=== PATIENT | female | born 1955 | race Caucasian/White ===

== ENCOUNTER 2021-04-13 18:38 | Emergency (ER) | payer MEDICARE ==
[2021-04-13 18:45] VITALS: TEMP 98
[2021-04-13] MEDS ORDERED: HYDROmorphone 1 MG/ML 1 ML SYRINGE IM STA (19:15)
[2021-04-13] MEDS ORDERED: LIDOCAINE 5% PATCH TOPICAL STA (19:15)
--- NOTE | 2021-04-13 19:37 | ED ---
Back Pain HPI - General Chief Complaint: Back Pain/Injury Stated Complaint: Back pain Time Seen by Provider: 04/13/21 18:57 Source: patient Limitations: no limitations - History of Present Illness Initial Comments: 66 year-old female patient with past history significant for MS with frequent falls. States she has had two falls over the last two days. States that she was outside and fell into the wall. States she did hit her face which caused some bruising around her right eye. Denies any headache, loss of consciousness, visual disturbance, nausea, or vomiting. States her other fall was last night when she fell into a chair. States she has increased low back pain. States it is low in the middle of her back over her spine. States this is worse and different than her usual back pain. States she is having some radiation down the left lateral leg to just above the knee. Denies new numbness or tingling to the legs. Denies saddle anesthesia or loss of bowel or bladder control. Denies any fever or chills. Has had multiple back surgeries and injections. Patient denies any recent rash, cough, shortness of breath, chest pain, abdominal pain, nausea, vomiting, diarrhea, constipation, dizziness, weakness, hematuria, dysuria, urinary urgency, urinary frequency, headache, visual changes, or any other complaints. - Related Data Previous Rx's Medication Instructions Recorded methylPREDNISolone [Medrol Dose 4 mg PO DIRECTED #1 pack 04/13/21 Pack] oxyCODONE HCL/ACETAMINOPHEN 1 tab PO Q8H PRN #9 tab 04/13/21 [Percocet 7.5-325 mg] Allergies Allergy/AdvReac Type Severity Reaction Status Date / Time tetanus toxoid, adsorbed Allergy Unknown Verified 04/13/21 18:40 Review of Systems ROS Statement: Those systems with pertinent positive or pertinent negative responses have been documented in the HPI. ROS Other: All systems not noted in ROS Statement are negative. Past Medical History Past Medical History: COPD, Renal Disease, Thyroid Disorder Additional Past Medical History / Comment(s): back pain, ms History of Any Multi-Drug Resistant Organisms: None Reported Past Surgical History: Back Surgery, Hysterectomy Additional Past Surgical History / Comment(s): thyroidectomy Past Psychological History: No Psychological Hx Reported Smoking Status: Current every day smoker Past Alcohol Use History: None Reported Past Drug Use History: None Reported General Exam Limitations: no limitations General appearance: alert, in no apparent distress, other (This is a well- developed, well-nourished adult female patient in no acute distress. Vital signs upon presentation temperature 98.0F, pulse 80, respirations 16, blood pressure 145/77, pulse ox 95% on room air.) Respiratory exam: Present: normal lung sounds bilaterally. Absent: respiratory distress, wheezes, rales, rhonchi, stridor Cardiovascular Exam: Present: regular rate, normal rhythm, normal heart sounds. Absent: systolic murmur, diastolic murmur, rubs, gallop, clicks GI/Abdominal exam: Present: soft, normal bowel sounds. Absent: distended, tenderness, guarding, rebound, rigid Extremities exam: Present: normal inspection, full ROM, normal capillary refill, other (Skin to the lower extremities are pink, warm, dry. Cap refill less than 3 seconds. Pedal pulses 2+.). Absent: tenderness, pedal edema, joint swelling, calf tenderness Back exam: Present: normal inspection, vertebral tenderness (Lower lumbar) Neurological exam: Present: alert, oriented X3, CN II-XII intact Psychiatric exam: Present: normal affect, normal mood Skin exam: Present: warm, dry, intact, normal color. Absent: rash Course Vital Signs 04/13/21 04/13/21 18:40 21:28 Temperature 98.0 F Pulse Rate 80 72 Respiratory 16 18 Rate Blood Pressure 145/77 141/86 O2 Sat by Pulse 95 98 Oximetry Medical Decision Making - Medical Decision Making 66 year-old female patient with past history significant for chronic back pain and MS presented to the emergency department today for evaluation of increased low back pain after 2 falls. Physical examination did reveal tenderness over the lumbar spine. She had no concerning symptoms or cauda equina. No fever. X-ray was obtained and showed no evidence for vertebral collapse or acute fracture. She'll be discharged with a increase in pain medication for the next 3 days. Instructed to follow-up with her facilities painter and direct marketing specialist as soon as possible. Return parameters were discussed in detail. She verbalizes understanding and agrees with this plan. Case discussed with my attending Dr. Sepulveda. - Radiology Data Radiology results: report reviewed, image reviewed X-ray of the lumbosacral spine are obtained. Report was reviewed in its entirety. Impression by Dr. Torrez shows intraspinous fusion hardware L3 to 4 and L4 to 5. Grade 1 anterolisthesis at fused L3 to L4 level. Changes L3 to S1 levels. No vertebral compression collapse. Disposition Clinical Impression: Acute exacerbation of chronic low back pain Disposition: HOME SELF-CARE Condition: Good Instructions (If sedation given, give patient instructions): Acute Low Back Pain (ED) Additional Instructions: Take medications as directed. Follow up through primary care physician and back specialist for further evaluation as soon as possible. Return to the emergency department for any new, worsening, or concerning symptoms. Prescriptions: methylPREDNISolone [Medrol Dose Pack] 4 mg PO DIRECTED #1 pack oxyCODONE HCL/ACETAMINOPHEN [Percocet 7.5-325 mg] 1 tab PO Q8H PRN #9 tab PRN Reason: Pain Is patient prescribed a controlled substance at d/c from ED?: No Referrals: Nonstaff,Physician [REFERRING] - 1-2 days Time of Disposition: 21:18
--- NOTE | 2021-04-13 20:55 | XR ---
EXAMINATION TYPE: XR lumbosacral spine min 4V DATE OF EXAM: 04/13/2021 Comparison: None Clinical History: 66-year-old female Fall, mid low back pain Findings: Interspinous fusion hardware at L3-L4 and L4-L5. Severe hypertrophic facet arthropathy. Advanced disc /endplate degenerative change from L3 through S1 levels. Fixed grade 1 anterolisthesis L3-L4. Vertebr al body heights are preserved. Bridging anterior plate spondylosis lower thoracic spine. Impression: 1. Intraspinous fusion hardware at L3-L4 and L4-L5. Fixed grade 1 anterolisthesis at the fused L3-L4 level. 2. Severe disc/endplate degenerative change L3-S1 levels. 3. No vertebral compression collapse.
[2021-04-13] MEDS ORDERED: oxyCODONE-APAP 7.5-325MG 1 EACH TAB PO STA (20:58)
[2021-04-13 21:30] VITALS: BP 141/86; PULSE 72; RESP 18
== END 2021-04-13 21:29 | disposition home or self-care (01) ==
LOC: EC 18:38
DX: M54.5 Low back pain (principal); G89.29 Other chronic pain; F17.200 Nicotine dependence, unspecified, uncomplicated; Z98.1 Arthrodesis status
CPT/HCPCS: 72110; 99283; 96372; J1170

== ENCOUNTER → 2023-12-09 | Outpatient (CLI) | payer MEDICARE, OTHER ==
--- NOTE | 2023-12-09 16:30 | CTL ---
EXAMINATION TYPE: CT Low Dose Lung DATE OF EXAM ORDERED: 12/09/2023 HISTORY: Current smoker. Lung cancer screening CT DLP: 138.[address] CTDI: 3.8 mGy Automated exposure control for dose reduction was used. SCREENING VISIT: Initial COMPARISON: None TECHNIQUE: Low dose computed tomography scan was performed through the chest at 1 mm thick sections a nd reconstructed images in the coronal plane at [address] DIAGNOSTIC QUALITY: Satisfactory FINDINGS: LUNG NODULES: None. LUNGS: COPD: Severity: None Fibrosis: Severity: None Lymph nodes: None Other findings: None RIGHT PLEURAL SPACE: Effusion: None Calcification: None Thickening: None Pneumothorax: None LEFT PLEURAL SPACE: Effusion: None Calcification: None Thickening: None Pneumothorax: None HEART: Heart Size: Normal Coronary calcification: Mild Pericardial effusion: None OTHER FINDINGS: Upper abdomen: Normal Bony thorax: Normal Supraclavicular region: Normal Other: Ascending thoracic aorta at the level the main pulmonary artery measures 3.2 cm. The main pul monary artery at the bifurcation measures 2.7 cm. IMPRESSION: No suspicious changes for primary or metastatic neoplasm. FOLLOW UP CT CHEST RECOMMENDATION: Follow-up low-dose CT chest one year CT LUNG RAD: Lung-Rad 1 Negative
== END | disposition home or self-care (01) ==
LOC: RADCTMAIN 11:13
PROVIDERS: ATTEND Internal Medicine Critical Care Medicine
DX: Z12.2 Encounter for screening for malignant neoplasm of respiratory organs (principal); F17.210 Nicotine dependence, cigarettes, uncomplicated
CPT/HCPCS: 71271

== ENCOUNTER → 2024-02-03 | Outpatient (CLI) | payer MEDICARE, OTHER ==
--- NOTE | 2024-02-04 10:29 | CA ---
Transthoracic Echo Report Name: Sejal Smith Age: 68 Gender: F : 1955 Exam Date: 02/03/2024 14:37 Exam Location: [place] [facility] Ht (in): 65 Wt (lb): 235 Ordering Physician: David Aponte MD Attending/Referring Phys: Christa Johnson [facility] Supervisor [employer] Assembly Amy Oliveros RDCS Procedure CPT: Indications: R01.1 CARDIAC MURMUR, UNSPECIFIED Cardiac Hx: Technical Quality: Fair Contrast 1: Total Dose (mL): Contrast 2: Total Dose (mL): MEASUREMENTS (Male / Female) Normal Values 2D ECHO LV Diastolic Diameter PLAX 4.9 cm 4.2 - 5.9 / 3.9 - 5.3 cm LV Systolic Diameter PLAX 3.6 cm IVS Diastolic Thickness 1.4 cm 0.6 - 1.0 / 0.6 - 0.9 cm LVPW Diastolic Thickness 1.3 cm 0.6 - 1.0 / 0.6 - 0.9 cm LV Relative Wall Thickness 0.5 RV Internal Dim ED PLAX 2.0 cm LA Systolic Diameter LX 2.9 cm 3.0 - 4.0 / 2.7 - 3.8 cm LV Diastolic Volume MOD BP 76.1 cm??? 67 - 155 / 56 - 104 cm??? LV Systolic Volume MOD BP 27.4 cm??? 22 - 58 / 19 - 49 cm??? LV Ejection Fraction MOD BP 64.0 % >= 55 % LV Cardiac Index MOD BP 1786.1 cm???/min???m??? LV Diastolic Volume MOD 4C 71.3 cm??? LV Systolic Volume MOD 4C 26.9 cm??? LV Ejection Fraction MOD 4C 62.3 % LV Cardiac Index MOD 4C 1630.8 cm???/min???m??? LV Diastolic Length 4C 7.7 cm LV Systolic Length 4C 6.3 cm LV Diastolic Volume MOD 2C 74.2 cm??? LV Systolic Volume MOD 2C 27.5 cm??? LV Ejection Fraction MOD 2C 62.9 % LV Cardiac Index MOD 2C 1711.5 cm???/min???m??? LV Diastolic Length 2C 6.9 cm LV Systolic Length 2C 6.2 cm M-MODE Aortic Root Diameter MM 3.1 cm LA Systolic Diameter MM 3.4 cm LA Ao Ratio MM 1.1 DOPPLER AV Peak Velocity 158.7 cm/s AV Peak Gradient 10.1 mmHg AV Mean Velocity 117.0 cm/s AV Mean Gradient 6.3 mmHg AV Velocity Time Integral 34.6 cm MV E' Velocity 6.9 cm/s FINDINGS Left Ventricle Left ventricular ejection fraction is estimated at 60-65 %. Moderately increased septal wall thickness. Mildly increased posterior wall thickness. No obvious regional wall motion abnormalities. Left ventricular cavity size normal. Right Ventricle Normal right ventricular size and function. Right ventricular systolic pressure within normal limits. Right Atrium Normal right atrial size. Left Atrium Normal left atrial size. Mitral Valve Structurally normal mitral valve. Trace mitral regurgitation. No mitral stenosis. Aortic Valve Trileaflet aortic valve. No aortic valve stenosis or regurgitation. Thickened aortic valve without stenosis. Tricuspid Valve Structurally normal tricuspid valve. Trace tricuspid regurgitation. Pulmonic Valve No pulmonic stenosis. No pulmonic regurgitation. Pericardium No pericardial or pleural effusion. Aorta Normal size aortic root and proximal ascending aorta. CONCLUSIONS LVH with preserved systolic function Previewed by: Dr. Booker Loo MD (Electronically Signed) Final Date: 04 February 2024 10:29
== END | disposition home or self-care (01) ==
LOC: RADECHMAIN 15:24
PROVIDERS: ATTEND Family Medicine
DX: R01.1 Cardiac murmur, unspecified (principal)
CPT/HCPCS: 93306

== ENCOUNTER 2024-10-07 11:14 | Day surgery (SDC) | payer MEDICARE, OTHER ==
[2024-10-01 14:58] VITALS: BMI 33.4
[~2024-10-07 11:14] MED LIST: ALPRAZolam 0.25 MG TAB PO PRN; ALPRAZolam 0.5 MG TAB PO PRN; ASPIRIN 325 MG TAB PO STA; HEPARIN SODIUM,PORCINE (1 ML) 2,500 UNIT in SODIUM CHLORIDE 0.9% 250 ML IRRIGATION PRN; HEPARIN SODIUM,PORCINE 10,000 UNIT in SODIUM CHLORIDE 0.9% 1,000 ML IRRIGATION PRN; NITROGLYCERIN SL TABS 0.4 MG TAB SUBLINGUAL PRN
[2024-10-07] MEDS: IV FLUID CONTINUATION 1,000 ML IV ONE (11:46)
[2024-10-07 11:47] VITALS: RESP 18; TEMP 98.2
[2024-10-07] MEDS: SODIUM CHLORIDE 0.9% 1,000 ML in EMPTY BAG 1 BAG IV SCH (11:47)
[2024-10-07] MEDS: HEPARIN SODIUM,PORCINE (1 ML) 2,500 UNIT in SODIUM CHLORIDE 0.9% 250 ML IRRIGATION ONE (11:52)
[2024-10-07] MEDS: HEPARIN SODIUM,PORCINE 10,000 UNIT in SODIUM CHLORIDE 0.9% 1,000 ML IRRIGATION ONE (11:52)
[2024-10-07] MEDS: fentaNYL (PF) 50 MCG/ML 2 ML AMP IVP ONE (12:52)
[2024-10-07] MEDS: MIDAZOLAM 2 MG/2 ML VIAL IVP ONE (12:52)
[2024-10-07] MEDS: LIDOCAINE 1% INJ 10MG/ML (20 ML MDV) SQ ONE (12:58)
[2024-10-07] MEDS: VERAPAMIL SYRINGE (5 MG/10 ML) INTRAARTER ONE (12:59)
[2024-10-07] MEDS: HEPARIN SODIUM 1,000 UN/ML (10ML VL) IVP ONE (13:02)
[2024-10-07] MEDS: IOPAMIDOL-370 100ML BTL INJ ONE (13:15)
--- NOTE | 2024-10-07 13:41 | P.CARDCATH ---
Description of Procedure: PROCEDURES PERFORMED: Left heart catheterization, bilateral coronary angiography, ultrasound guided arterial access, bilateral carotid angiogram, ascending aortic angiogram INDICATION: abnormal stress test, abnormal carotid ultrasound consistent with 100% left internal carotid artery stenosis CONSENT:I have discussed the risks, benefits and alternative therapies for the above-mentioned procedure and for both sedation/analgesia as well as necessary blood product administration, if indicated, as they pertain to this patient. The patient has indicated understanding and acceptance of the risks and procedures discussed. PROCEDURE: After the risks, benefits and alternatives of the above mentioned procedure explained in detail with the patient, informed consent was obtained. Patient was taken to the catheterization lab and prepped and draped in usual fashion. Ultrasound guidance was used to assess for arterial access. 1% l idocaine was used to anesthetize the right radial artery. A 6-Puerto Rican sheath was placed in the right radial artery using modified Seldinger technique and ultrasound guidance. Left coronary angiography was performed with a 5-[place] JL 3.5 catheter and right coronary angiography was performed with a 5-[place] FR5 catheter in various views. A 5-[place] FR5 catheter was inserted into the left ventricle and pressure measurements were obtained. next a 6-[place]ican pigtail was placed in the ascending aorta and aortogram was performed with PSA. This showed 100% occlusion of the left internal carotid artery. Additionally subselective images were obtained with the 5-[place] FR5 catheter and a number abuse with only mild 30% right internal carotid artery stenosis. The right radial sheath was removed and a TR band was placed with hemostasis achieved. The patient tolerated the procedure well. Patient was transported back to the post catheterization holding area in stable condition. Conscious Sedation: Patient was monitored under the direct supervision of myself for conscious sedation using Versed and fentanyl for a total duration of 19 minutes HEMODYNAMICS: aorta: 148/72 LV: 141/18, LVEDP 25 SELECTIVE CORONARY ARTERIOGRAPHY: LEFT MAIN: The left main is a large caliber vessel which bifurcates into the LAD and circumflex. There is no significant stenosis. LEFT ANTERIOR DESCENDING CORONARY ARTERY: LAD is a large caliber vessel which wraps around to the apex. There is are mild luminal irregularities and mid LAD 20% stenosis. There are [id number] collaterals. LEFT CIRCUMFLEX CORONARY ARTERY: Left circumflex is a moderate caliber vessel with mild luminal irregularities in 20-30% circumflex stenosis. RIGHT CORONARY ARTERY: The right coronary artery is a large caliber vessel which gives off a PDA and PLV branch and is the dominant vessel. There is 100% stenosis after a small caliber acute marginal branch. ASCENDING AORTOGRAM: No significant aneurysm or stenosis RIGHT CAROTID: There is some toruosity of the ALHAJI and 30% proximal ALHAJI stenosis LEFT CAROTID: There is 100% LICA stenosis FINAL IMPRESSION: 1. CAD as described above including 100% RCA stenosis with [id number] collaterals, 20-30% circumflex stenosis 2. Elevated left sided filling pressures 3. 100% left internal carotid artery stenosis and 30% right internal carotid artery stenosis PLAN: 1. Aggressive risk factor modification per most recent ACC/AHA guidelines. 2. Medical therapy for INDUSTRIAL CAFETERIA MANAGER RCA and 100% left internal carotid artery stenosis
--- NOTE | 2024-10-07 14:20 | IR ---
EXAMINATION TYPE: IR angio carotid cerv BILAT DATE OF EXAM: 10/07/2024 FLUOROSCOPY left carotid stenosis, 3.3min fluoro, 19.1Gycm2 Total images 359 [facility], , 10/07/2024 2:18 PM
[2024-10-07 15:59] VITALS: PULSE 64
[2024-10-07 16:30] VITALS: BP 100/57
== END 2024-10-07 16:29 | disposition home or self-care (01) ==
LOC: CATHCVL 11:14
PROVIDERS: ATTEND Internal Medicine
DX: I25.10 Atherosclerotic heart disease of native coronary artery without angina pectoris (principal); I65.22 Occlusion and stenosis of left carotid artery; E66.9 Obesity, unspecified; E78.5 Hyperlipidemia, unspecified; I11.0 Hypertensive heart disease with heart failure; I50.32 Chronic diastolic (congestive) heart failure; F17.210 Nicotine dependence, cigarettes, uncomplicated; Z82.49 Family history of ischemic heart disease and other diseases of the circulatory system; Z79.899 Other long term (current) drug therapy
CPT/HCPCS: 93458; 36222; 99152; C1769; C1894; J2250; J1644 ×3; J2003; J3010; Q9967

== ENCOUNTER → 2025-01-10 | Day surgery (SDC) | payer MEDICARE, OTHER ==
[~2025-01-10] MED LIST changes: -ALPRAZolam 0.5 MG TAB PO PRN; -ASPIRIN 325 MG TAB PO STA; -HEPARIN SODIUM,PORCINE (1 ML) 2,500 UNIT in SODIUM CHLORIDE 0.9% 250 ML IRRIGATION PRN; -HEPARIN SODIUM,PORCINE 10,000 UNIT in SODIUM CHLORIDE 0.9% 1,000 ML IRRIGATION PRN; -NITROGLYCERIN SL TABS 0.4 MG TAB SUBLINGUAL PRN
[2025-01-10] MEDS: EMPTY BAG 1 BAG with SODIUM CHLORIDE 0.9% 1,000 ML IV SCH (08:17)
[2025-01-10] MEDS: IV FLUID CONTINUATION 1,000 ML IV ONE (08:25)
[2025-01-10 08:56] VITALS: TEMP 99.6
[2025-01-10] MEDS: HEPARIN SODIUM,PORCINE 10,000 UNIT in SODIUM CHLORIDE 0.9% 1,000 ML IRRIGATION ONE (09:07)
[2025-01-10] MEDS: MIDAZOLAM 2 MG/2 ML VIAL IVP ONE (09:22)
[2025-01-10] MEDS: fentaNYL (PF) 50 MCG/ML 2 ML AMP IVP ONE (09:24)
[2025-01-10] MEDS: LIDOCAINE 1% INJ 10MG/ML (20 ML MDV) SQ ONE (09:25)
[2025-01-10] MEDS: IOPAMIDOL-370 100ML BTL INJ ONE (09:45)
--- NOTE | 2025-01-10 10:00 | P.PCN ---
Description of Procedure: PROCEDURES PERFORMED: Abdominal angiography with bilateral runoff, ultrasound guided arterial access INDICATION: PAD CONSENT:I have discussed the risks, benefits and alternative therapies for the above-mentioned procedure and for both sedation/analgesia as well as necessary blood product administration, if indicated, as they pertain to this patient. The patient has indicated understanding and acceptance of the risks and procedures discussed. PROCEDURE: After the risks, benefits and alternatives of the above mentioned procedure explained in detail with the patient, informed consent was obtained. Patient was taken to the catheterization lab and prepped and draped in usual fashion. 1% lidocaine was used to anesthetize the right femoral area. A 6- Burkinan sheath was placed in the right femoral artery using modified Seldinger technique. A 5-Burkinan pigtail catheter was inserted to the abdominal aorta and DSA imaging was obtained. Patient tolerated the diagnostic portion well. The left SFA had stenosis at the origin and therefore no intervention was performed. A right femoral angiogram was performed and anatomoy was suitable for closure. A 6Fr Angioseal was placed with hemostasis achieved. The patient tolerated the procedure well. Patient was transported back to the post catheterization holding area in stable condition. Conscious Sedation: Patient was monitored under the direct supervision of vision of myself for conscious sedation using Versed and fentanyl for a total duration of 24 minutes Abdominal aorta: The abdominal aorta has mild calcifcation. Renal arteries are patent. There is no significant dissection or aneurysm. There is no significant stenosis. Right lower extremity: Right common iliac artery: There is mild 30 to 40% stenosis. Right external iliac artery: There is no significant stenosis. Right internal iliac artery: There is no significant stenosis. Right common femoral artery: There is no significant stenosis. Right profunda: There is no significant stenosis. Right SFA: There is right distal SFA 95% stenosis and otherwise mild diffuse disease stenosis. Right popliteal artery: There is no significant stenosis. Right tibioperoneal trunk: There is no significant stenosis. Right anterior tibial artery: There is 100% stenosis. Right posterior tibial artery: There is no significant stenosis. Right peroneal artery: There is no significant stenosis. Left lower extremity: Left common iliac artery: There is no significant stenosis. Left external iliac artery: There is 50% stenosis. Left internal iliac artery: There is no significant stenosis. Left common femoral artery: There is no significant stenosis. Left profunda: There is no significant stenosis. Left SFA: There is 100% ostial stenosis. There is reconstitution at the P1 segment. Left popliteal artery: There is no significant stenosis. Left tibioperoneal trunk: There is no significant stenosis. Left anterior tibial artery: There is no significant stenosis. Left posterior tibial artery: There is 100% stenosis. Left peroneal artery: There is no significant stenosis. FINAL IMPRESSION: 1. Peripheral arterial disease as described above. PLAN: 1. Aggressive risk factor modification per most recent ACC/AHA guidelines. 2. Left SFA not ideal for percutaneous intervention with ostial stenosis. May consider right SFA percutaneous intervention however left SFA would likely need bypass. Tobacco cessation.
--- NOTE | 2025-01-10 10:20 | IR ---
EXAMINATION TYPE: IR angio abdominal w runoff DATE OF EXAM: 01/10/2025 10:12 AM COMPARISON: Pre Operative Images if available both CT/MRI or plain film CLINICAL INDICATION: Female, 69 years old with history of left leg pain, min fluoro, Gycm2; TECHNIQUE: IR angio abdominal w runoff, multiple fluoroscopic images provided for procedure. DAP: Not reported mGym2 Gycm2 uGym2 cGycm2 or equivalent. FINDINGS: IMPRESSION: 1. Report was generated for administrative purposes only. 2. Please see the operative/procedural note for further details. [facility], , 01/10/2025 10:18 AM
[2025-01-10] MEDS: GABAPENTIN 400 MG CAP PO STA (13:47)
[2025-01-10] MEDS: HYDROcodone/APAP 10-325MG 1 EACH TAB PO ONE (13:52)
[2025-01-10 18:49] VITALS: RESP 16
[2025-01-10 18:51] VITALS: BP 138/63; PULSE 62
== END ==
LOC: CATHCVL 07:51
PROVIDERS: ATTEND Internal Medicine
DX: I25.10 Atherosclerotic heart disease of native coronary artery without angina pectoris (principal); I65.23 Occlusion and stenosis of bilateral carotid arteries; I73.9 Peripheral vascular disease, unspecified; I50.33 Acute on chronic diastolic (congestive) heart failure; I11.0 Hypertensive heart disease with heart failure; E78.5 Hyperlipidemia, unspecified; F17.210 Nicotine dependence, cigarettes, uncomplicated; G35 Multiple sclerosis; Z88.7 Allergy status to serum and vaccine; Z79.02 Long term (current) use of antithrombotics/antiplatelets; Z79.890 Hormone replacement therapy; Z79.899 Other long term (current) drug therapy
CPT/HCPCS: 36200; 75625; 75716; 99152; 99153; C1760; C1894; C1769 ×2; J2250; J1644; J2003; J3010; Q9967

== ENCOUNTER → 2025-02-16 | Outpatient (CLI) | payer MEDICARE ==
--- NOTE | 2025-02-16 13:24 | CTL ---
EXAMINATION TYPE: CT Low Dose Lung DATE OF EXAM ORDERED: 02/16/2025 COMPARISON: CT Low Dose Lung 12/09/2023 CLINICAL INDICATION: Female, 69 years old with history of Z12.2 ENCNTR SCREEN FOR MALIGNANT NEOPLASM OF RESZ12.2 ENCNT; PHH, SMOKER, Lung cancer screening, History of Smoking/tobacco use. TECHNIQUE: Low dose computed tomography scan was performed through the chest at 1 mm thick sections a nd reconstructed images in multiple planes at 1 mm and [address] DLP: 94.[address] CTDI: 2.07 mGy Automated exposure control for dose reduction was used. CT DIAGNOSTIC QUALITY: Limited, but interpretable FINDINGS: Nodules: No clinically significant pulmonary nodule. LUNGS: COPD: Severity: None Fibrosis: Severity: None Lymph nodes: None Other findings: None RIGHT PLEURAL SPACE: Effusion: None Calcification: None Thickening: None Pneumothorax: None LEFT PLEURAL SPACE: Effusion: None Calcification: None Thickening: None Pneumothorax: None HEART: Heart Size: Normal Coronary Calcification: Moderate Pericardial Effusion: None OTHER FINDINGS: Upper abdomen: Left renal exophytic 6.4 cm cyst. No follow up recommended. Bony thorax: Multilevel degenerative disc disease. Postsurgical changes with partial visualization of a lower lumbar spine spinous process fusion hardware. Supraclavicular region: None Other: Mild atherosclerotic calcification of the aorta and its branches. IMPRESSION: No clinically significant pulmonary nodule. CT LUNG RAD AND CT CHEST RECOMMENDATION: Lung-Rad 1 Negative: Continue annual screening with LDCT in 12 months. S Modifier (other clinically significant findings): None [facility], , 02/16/2025 1:21 PM
== END | disposition home or self-care (01) ==
LOC: RADCTMAIN 12:31
PROVIDERS: ATTEND Internal Medicine Critical Care Medicine
DX: Z12.2 Encounter for screening for malignant neoplasm of respiratory organs (principal); F17.210 Nicotine dependence, cigarettes, uncomplicated
CPT/HCPCS: 71271